=== PATIENT | male | born 1950 | race Caucasian/White ===

== ENCOUNTER 2019-03-12 23:38 | Emergency (ER) | payer OTHER ==
[~2019-03-12] VITALS: Ht 167.6 cm; Wt 53.5 kg
[2019-03-12 23:42] VITALS: Ht 167.6 cm; Wt 53.5 kg
[2019-03-13] MEDS ORDERED: ACETAMINOPHEN 500 MG TAB PO STA (00:39)
[2019-03-13] MEDS ORDERED: DIPHTH/TET/ACEL PERTUSS (ADULT) 0.5 ML VIAL IM* ONE (01:00)
[2019-03-13] MEDS ORDERED: ACET500C5 PO (02:09)
--- NOTE | 2019-03-13 02:27 | ERD ---
ER Documentation Chief Complaint [facility]; ky shoulders hurts HPI Patient is a 68-year-old male, no past medical history, who presents the ER for concerns of a laceration to his right eyebrow as well as elbow pain after slip and fall injury while in the shower prior to arrival. Patient denies any dizziness or lightheadedness prior to injury. Patient states he landed on his right elbow and then hit the corner his right head on the shower floor. Patient did not lose consciousness. Patient denies any nausea, vomiting, acute confusion or excessive sleepiness. Patient states he drove himself to the ER. Patient denies any blood thinner use. Patient denies any neck pain or back pain. Patient is right-hand dominant. Patient denies any chest pain, shortness of breath, abdominal pain. ROS All systems reviewed and are negative except as per history of present illness. Medications Home Meds Active Scripts Acetaminophen* (Tylophen*) 500 Mg Capsule, 1 CAP PO Q6H PRN for PAIN AND OR ELEVATED TEMP, #20 CAP Prov:PARAG OZUNA PA-C 03/13/19 Allergies Allergies: Coded Allergies: No Known Allergy (Unverified , 03/12/19) PMhx/Soc Medical and Surgical Hx: pt denies Medical Hx, pt denies Surgical Hx Hx Alcohol Use: No Hx Substance Use: No Hx Tobacco Use: No Smoking Status: Never smoker FmHx Family History: No diabetes Physical Exam Vitals Vital Signs Date Temp Pulse Resp B/P (MAP) Pulse Ox O2 O2 Flow FiO2 Time Delivery Rate 03/12/19 97.3 53 18 123/57 99 23:42 (79) Physical Exam GENERAL: Well-developed, well-nourished male. Appears in no acute distress. Speaking in full sentences HEAD: Normocephalic, atraumatic. EYES: Pupils are equally reactive bilaterally. EOMs grossly intact. No conjunctival erythema. 1 cm Y-shaped laceration noted to the right eyebrow. No periorbital swelling or ecchymosis. ENT: Moist mucous membranes. No uvula deviation. No kissing tonsils. No mastoid ecchymosis or swelling. No septal hematoma. NECK: Supple. No meningismus. Normal range of motion of the neck. No cervical midline tenderness. LUNG: Clear to auscultation bilaterally. No rhonchi, wheezing, rales or coarse breath sounds. HEART: Regular rate and rhythm. No murmurs, rubs or gallops.BACK: No midline tenderness. EXTREMITIES: Equal pulses bilaterally. No peripheral clubbing, cyanosis or edema. No unilateral leg swelling. R shoulder and elbow: No obvious deformity. No swelling, ecchymosis or erythema. Normal range motion of the right elbow and shoulder. Normal pulses. NEUROLOGIC: Alert and oriented x3, cooperative. Mood and affect appropriate to situation. Cranial nerves II through XII are grossly intact. Normal speech. Motor exam: 5/5 strength in upper and lower extremities. Sensory exam: Sensation intact to light touch on all four extremities. Cerebellar function exam: Rapid alternating movements intact. No dysmetria on cqeqhe-uh-vpcw and nnhr-zv-jpfr test. Steady gait. No pronator drift. 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 Results 24 hrs Current Medications Medications Dose Sig/Seamus Start Time Status Last (Trade) Ordered Route PRN Stop Time Admin Dose Reason Admin Diphtheria/ 0.5 ml ONCE ONCE 03/13/19 DC 03/13/19 Tetanus/Acell IM* 01:00 01:16 Pertussis 03/13/19 01:01 (Adacel) 500 mg ONCE STAT 03/13/19 DC 03/13/19 Acetaminophen PO 00:39 01:16 (Tylenol 03/13/19 00:42 Tab) Procedures/MDM ED COURSE: The patient was stable throughout ED course. I kept the patient and/or family informed of laboratory and diagnostic imaging results throughout the ED course. DIAGNOSTIC IMAGING: Read by radiologist. DIAGNOSTIC IMAGING REPORT Patient: JONO MIXON : 1950 Age: 68 Sex: M MR #: [id number] DOS: 03/13/19 0039 Ordering MD: PARAG OZUNA PA-C Location: [facility] Room/Bed: PROCEDURE: CT Brain without contrast. CLINICAL INDICATION: Fall, head laceration. TECHNIQUE: A CT of the brain without contrast was performed utilizing axial sections from the skull base through the vertex. One or more the following does reduction techniques were utilized: Automated exposure control, adjustment of the mA/ or kV according to patient's size, or use of iterative reconstruction technique. Total exam CTDIvol is 39 MGy and DLP is 634 mGy-cm. DICOM images are available. COMPARISON: None available per FINDINGS: The ventricles and sulci are minimally prominent indicative of volume loss. Th ere is no intracranial hemorrhage, mass effect or midline shift. No abnormal intra-axial or extra-axial fluid collections are seen. The cruz/white matter differentiation is well preserved. There are minimal scattered foci of hypoattenuation in the periventricular, deep, and subcortical white matter, which are nonspecific in etiology but likely reflect chronic small vessel ischemic changes. There are minimal intracranial vascular calcifications consistent with atherosclerosis. The visualized paranasal sinuses are essentially clear. IMPRESSION: 1. No acute intracranial hemorrhage, transcortical infarction or mass effect. 2. Minimal intracranial atherosclerosis and chronic small vessel ischemic changes. 3. Minimal generalized cerebral volume loss. RPTAT: HFN .Marie Carbone MD, MD Date Time Electronically viewed and signed by .Marie Carbone MD, MD on 03/13/2019 01:30 .N/ CC: PARAG OZUNA PA-C [id number] DIAGNOSTIC IMAGING REPORT Patient: JONO MIXON : 1950 Age: 68 Sex: M MR #: [id number] DOS: 03/13/19 0039 Ordering MD: PARAG OZUNA PA-C Location: [facility] Room/Bed: PROCEDURE: CT scan facial bones CLINICAL INDICATION: Trauma, fall. Facial injury. Pain. TECHNIQUE: CT scan of the face was performed on the a high-resolution multidetector CT scanner with multiple contiguous axial images obtained through the face. Coronal and sagittal reformatted images were obtained from the axial source images. One or more the following does reduction techniques were utilized: Automated exposure control, adjustment of the mA/ or kV according to patient's size, or use of iterative reconstruction technique. Exam CTDI = 29 mGy and the DLP = 540 mGy-cm. DICOM images are available. COMPARISON: None available. FINDINGS: No acute fracture or dislocation is seen. No significant soft tissue swelling is noted. The orbital globes are unremarkable. Nasal septum is intact. Paranasal sinuses are clear. IMPRESSION: 1. No acute facial fracture or dislocation. RPTAT: HFN .Marie Carbone MD, MD Date Time Electronically viewed and signed by .Marie Carbone MD, MD on 03/13/2019 01:33 .N/ CC: PARAG OZUNA PA-C [id number] PROCEDURES: Laceration Repair: The patient was verbally consented prior to procedure. Patient was explained the risks, benefits and alternatives to this procedure. Length: 1 cm Irrigation: Thorough irrigation was performed with normal saline and adequate pressure. Inspection: The wound was thoroughly explored and no foreign bodies, deep tissue, tendon or structural injuries were noted. Anesthesia: 3 cc 1% lidocaine Repair: The area was prepared and draped in the usual sterile manner with the wound exposed. 3 Prolene 6-0 sutures were placed with good wound closure and wound approximation. Bleeding was minimal. The patient tolerated the procedure well with no complications. The wound was dressed with bacitracin and sterile gauze. The patient was neurovascularly intact post-procedure. Post-procedural wound care was discussed with the patient. MEDICAL DECISION MAKING: This is a 68-year-old male, no past medical history presents ER for concerns of a laceration to his right eyebrow as well as right elbow pain after a slip and fall injury prior to arrival. Vital signs were reviewed. Patient was afebrile. Patient was not hypoxic. Patient denied any loss of consciousness. CT imaging of the brain as well as facial bones was obtained and was unremarkable. See formal report above. Patient was offered imaging studies of his shoulder as well as elbow however patient stated he did not feel that he needed x-ray images. Laceration repair was performed as described above. Tdap was given. Patient was advised to return in 2 days for wound recheck. Strict head injury return precautions given. Patient understood and was agreeable with plan. At this time, patient presentation was consistent with eyebrow laceration and elbow pain. PRESCRIPTIONS: Tylenol DISCHARGE: At this time, the patient is stable for discharge and outpatient management. Post-procedural wound care was discussed with the patient. The patient has been advised to return to the ER in 2 days for a wound check and then again in [] days for suture removal. I have instructed the patient to promptly return to the ER for any new or worsening symptoms including increasing pain, fever, warmth, redness or swelling. The patient and/or family expressed understanding of and agreement with this plan. All questions were answered. Home care instructions were provided. Disclaimer: Inadvertent spelling and grammatical errors are likely due to EHR/dictation software use and do not reflect on the overall quality of patient care. Also, please note that the electronic time recorded on this note does not necessarily reflect the actual time of the patient encounter. Departure Diagnosis: Primary Impression: Elbow pain, right Additional Impressions: Fall Encounter type: initial encounter Qualified Codes: W19.XXXA - Unspecified fall, initial encounter Laceration Condition: Fair Patient Instructions: Sprain Elbow, Fall Prevention Referrals: [facility] YOU HAVE RECEIVED A MEDICAL SCREENING EXAM AND THE RESULTS INDICATE THAT YOU DO NOT HAVE A CONDITION THAT REQUIRES URGENT TREATMENT IN THE EMERGENCY DEPARTMENT. FURTHER EVALUATION AND TREATMENT OF YOUR CONDITION CAN WAIT UNTIL YOU ARE SEEN IN YOUR DOCTORS OFFICE WITHIN THE NEXT 1-2 DAYS. IT IS YOUR RESPONSIBILITY TO MAKE AN APPOINTMENT FOR FOLOW-UP CARE. IF YOU HAVE A PRIMARY DOCTOR --you should call your primary doctor and schedule an appointment IF YOU DO NOT HAVE A PRIMARY DOCTOR YOU CAN CALL OUR PHYSICIAN REFERRAL HOTLINE AT IF YOU CAN NOT AFFORD TO SEE A PHYSICIAN YOU CAN CHOSE FROM THE FOLLOWING [facility] [address] [facility]. [facility] [address] [facility]. [facility] [address] [facility] [address] [facility]. [facility] [address] [facility] [facility]. [facility]. [address] [facility]. [facility] YOU HAVE RECEIVED A MEDICAL SCREENING EXAM AND THE RESULTS INDICATE THAT YOU DO NOT HAVE A CONDITION THAT REQUIRES URGENT TREATMENT IN THE EMERGENCY DEPARTMENT. FURTHER EVALUATION AND TREATMENT OF YOUR CONDITION CAN WAIT UNTIL YOU ARE SEEN IN YOUR DOCTORS OFFICE WITHIN THE NEXT 1-2 DAYS. IT IS YOUR RESPONSIBILITY TO MAKE AN APPOINTMENT FOR FOLOW-UP CARE. IF YOU HAVE A PRIMARY DOCTOR --you should call your primary doctor and schedule and appointment IF YOU DO NOT HAVE A PRIMARY DOCTOR YOU CAN CALL OUR PHYSICIAN REFERRAL HOTLINE AT . IF YOU CAN NOT AFFORD TO SEE A PHYSICIAN YOU CAN CHOSE FROM THE FOLLOWING [facility] INSTITUTIONS: [facility] [address] [place] [address] [facility] [address] [place] [address] [facility] [address] [place] [address] Additional Instructions: Wound check advised in 2 days. Call your primary care doctor TOMORROW for an appointment during the next 1-2 days.See the doctor sooner or return here if your condition worsens before your appointment time. PARAG OZUNA PA-C Mar 13, 2019 02:26
[2019-03-13 02:43] VITALS: BP 118/62; PULSE 72; RESP 16
== END 2019-03-13 02:45 | disposition home or self-care (01) ==
LOC: FTE 23:38
DX: S01.111A Laceration without foreign body of right eyelid and periocular area, initial encounter (principal); M25.521 Pain in right elbow; W18.2XXA Fall in (into) shower or empty bathtub, initial encounter; Y92.031 Bathroom in apartment as the place of occurrence of the external cause; Z23 Encounter for immunization
CPT/HCPCS: 70450; 70486; 90471; 90715

== ENCOUNTER 2019-03-14 22:21 | Emergency (ER) | payer OTHER ==
[~2019-03-14] VITALS: Ht 167.6 cm; Wt 54.3 kg
[~2019-03-14 22:21] MED LIST: ACET500C5 PO
[2019-03-14 22:53] VITALS: Ht 167.6 cm; Wt 54.3 kg
--- NOTE | 2019-03-15 00:14 | ERD ---
ER Documentation Chief Complaint Chief Complaint CHECK SUTURES ON R EYEBROW, PLACED 2 DAYS AGO HPI This is a very pleasant 68-year-old male with no second past medical history presents to the ED for wound recheck. Patient was seen here on March 12, 2019 after slip and fall in the bathroom. He sustained a laceration to his right eyebrow which was repaired with 3 sutures. He denies any pain. Denies any new injuries. States wound is healing well. Denies any discharge, fevers or chills. ROS All systems reviewed and are negative except as per history of present illness. Medications Home Meds Active Scripts Acetaminophen* (Tylophen*) 500 Mg Capsule, 1 CAP PO Q6H PRN for PAIN AND OR ELEVATED TEMP, #20 CAP Prov:PARAG OZUNA PA-C 03/13/19 Allergies Allergies: Coded Allergies: No Known Allergy (Unverified , 03/12/19) PMhx/Soc Hx Alcohol Use: No Hx Substance Use: No Hx Tobacco Use: No Physical Exam Vitals Vital Signs Date Temp Pulse Resp B/P (MAP) Pulse Ox O2 O2 Flow FiO2 Time Delivery Rate 03/14/19 97.0 52 18 122/60 100 22:53 (80) Physical Exam Const: No acute distress Head: + Well-healing 1 cm wound to right lateral eyebrow, [address] No surrounding erythema or edema. No discharge. Eyes: Normal Conjunctiva. EOMI. PERRL. ENT: Normal External Ears, Nose and Mouth. Neck: Full range of motion. No meningismus. Skin: No petechiae or rashes Neur: Awake and alert Psych: Normal Mood and Affect Procedures/MDM 68-year-old male presents for wound recheck of his right eyebrow status post laceration repair 3 days ago. Wound is healing well. He has no fever here and vital signs are normal. No signs of ischemic necrosis, abscess, sepsis or other deep space infection. Sutures can be removed in another 2 to 3 days. Strict return precautions given. Departure Diagnosis: Primary Impression: Encounter for wound re-check Condition: Stable Patient Instructions: Wound Check, Lac F/U (No Infection) Referrals: COMM[facility] CLINICS YOU HAVE RECEIVED A MEDICAL SCREENING EXAM AND THE RESULTS INDICATE THAT YOU DO NOT HAVE A CONDITION THAT REQUIRES URGENT TREATMENT IN THE EMERGENCY DEPARTMENT. FURTHER EVALUATION AND TREATMENT OF YOUR CONDITION CAN WAIT UNTIL YOU ARE SEEN IN YOUR DOCTORS OFFICE WITHIN THE NEXT 1-2 DAYS. IT IS YOUR RESPONSIBILITY TO MAKE AN APPOINTMENT FOR FOLOW-UP CARE. IF YOU HAVE A PRIMARY DOCTOR --you should call your primary doctor and schedule an appointment IF YOU DO NOT HAVE A PRIMARY DOCTOR YOU CAN CALL OUR PHYSICIAN REFERRAL HOTLINE AT IF YOU CAN NOT AFFORD TO SEE A PHYSICIAN YOU CAN CHOSE FROM THE FOLLOWING [facility] [address] [facility] [address] [facility] [address] [facility] [address] [facility] [address] [facility]. [facility] [address] [facility]. [facility] YOU HAVE RECEIVED A MEDICAL SCREENING EXAM AND THE RESULTS INDICATE THAT YOU DO NOT HAVE A CONDITION THAT REQUIRES URGENT TREATMENT IN THE EMERGENCY DEPARTMENT. FURTHER EVALUATION AND TREATMENT OF YOUR CONDITION CAN WAIT UNTIL YOU ARE SEEN IN YOUR DOCTORS OFFICE WITHIN THE NEXT 1-2 DAYS. IT IS YOUR RESPONSIBILITY TO MAKE AN APPOINTMENT FOR FOLOW-UP CARE. IF YOU HAVE A PRIMARY DOCTOR --you should call your primary doctor and schedule and appointment IF YOU DO NOT HAVE A PRIMARY DOCTOR YOU CAN CALL OUR PHYSICIAN REFERRAL HOTLINE AT . IF YOU CAN NOT AFFORD TO SEE A PHYSICIAN YOU CAN CHOSE FROM THE FOLLOWING [facility] INSTITUTIONS: [facility] [address] [place] [address] [facility] [address] [place] [address] [facility] [address] [place] [address] Additional Instructions: Sutures can be removed in 3 to 4 days. You can take regular showers. However I do not recommend swimming any pools until your sutures are removed. Return here sooner for any worsening pain, fevers, discharge or any other complaints. MARTIN MARTINS PA-C Mar 15, 2019 00:14
[2019-03-15 00:42] VITALS: BP 127/62; PULSE 48; RESP 18
== END 2019-03-15 00:43 | disposition home or self-care (01) ==
LOC: FTE 22:21
DX: Z48.01 Encounter for change or removal of surgical wound dressing (principal)
CPT/HCPCS: 99281

== ENCOUNTER 2019-03-19 23:22 | Emergency (ER) | payer OTHER ==
[~2019-03-19] VITALS: Ht 167.6 cm; Wt 54.1 kg
[2019-03-19 23:49] VITALS: Ht 167.6 cm; Wt 54.1 kg
--- NOTE | 2019-03-20 02:37 | ERD ---
ER Documentation Chief Complaint Chief Complaint suture removal right eyebrow ROS All systems reviewed and are negative except as per history of present illness. Medications Home Meds Active Scripts Acetaminophen* (Tylophen*) 500 Mg Capsule, 1 CAP PO Q6H PRN for PAIN AND OR ELEVATED TEMP, #20 CAP Prov:PARAG OZNUA PA-C 03/13/19 Allergies Allergies: Coded Allergies: No Known Allergy (Unverified , 03/12/19) PMhx/Soc Medical and Surgical Hx: pt denies Medical Hx, pt denies Surgical Hx Hx Alcohol Use: No Hx Substance Use: No Hx Tobacco Use: No Smoking Status: Never smoker Physical Exam Vitals Vital Signs Date Temp Pulse Resp B/P (MAP) Pulse Ox O2 O2 Flow FiO2 Time Delivery Rate 03/19/19 98.2 54 18 109/56 98 23:49 (73) Physical Exam Const: No acute distress Head: Atraumatic Eyes: Normal Conjunctiva ENT: Normal External Ears, Nose and Mouth. Neck: Full range of motion. No meningismus. Resp: Clear to auscultation bilaterally Cardio: Regular rate and rhythm, no murmurs Abd: Soft, non tender, non distended. Normal bowel sounds Skin: No petechiae or rashes Back: No midline or flank tenderness Ext: No cyanosis, or edema Neur: Awake and alert Psych: Normal Mood and Affect Departure Diagnosis: Primary Impression: Encounter for removal of sutures Condition: Fair Patient Instructions: Suture Removal, No Complication Referrals: COMM[facility]ITY CLINICS YOU HAVE RECEIVED A MEDICAL SCREENING EXAM AND THE RESULTS INDICATE THAT YOU DO NOT HAVE A CONDITION THAT REQUIRES URGENT TREATMENT IN THE EMERGENCY DEPARTMENT. FURTHER EVALUATION AND TREATMENT OF YOUR CONDITION CAN WAIT UNTIL YOU ARE SEEN IN YOUR DOCTORS OFFICE WITHIN THE NEXT 1-2 DAYS. IT IS YOUR RESPONSIBILITY TO MAKE AN APPOINTMENT FOR FOLOW-UP CARE. IF YOU HAVE A PRIMARY DOCTOR --you should call your primary doctor and schedule an appointment IF YOU DO NOT HAVE A PRIMARY DOCTOR YOU CAN CALL OUR PHYSICIAN REFERRAL HOTLINE AT IF YOU CAN NOT AFFORD TO SEE A PHYSICIAN YOU CAN CHOSE FROM THE FOLLOWING [facility] CLINICS [facility] [address] [facility]. [facility] [address] [facility]. [facility] [address] [facility]. [facility] [address] [facility]. [facility] [address] [facility]. [facility] [address] Additional Instructions: Call your primary care doctor TOMORROW for an appointment during the next 1-2 days.See the doctor sooner or return here if your condition worsens before your appointment time. NITZA ANAND DO Mar 20, 2019 02:37
[2019-03-20 02:44] VITALS: BP 138/65; PULSE 50; RESP 18
== END 2019-03-20 02:44 | disposition home or self-care (01) ==
LOC: FTE 23:22
DX: Z48.02 Encounter for removal of sutures (principal)
CPT/HCPCS: 99281